=== PATIENT | male | born 2000 | race Caucasian/White ===

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

== ENCOUNTER 2019-06-15 16:51 | Emergency (ER) | payer BC, OTHER ==
[2019-06-15 16:57] VITALS: RESP 16; TEMP 98
[2019-06-15] MEDS ORDERED: diphenhydrAMINE 50 MG/ML 1 ML VIAL IVP STA (18:06)
[2019-06-15] MEDS ORDERED: METOCLOPRAMIDE 5 MG/ML 2 ML VIAL IVP STA (18:06)
[2019-06-15] MEDS ORDERED: SODIUM CHLORIDE 0.9% 1,000 ML IV STA (18:06)
--- NOTE | 2019-06-15 18:11 | CT ---
EXAMINATION TYPE: CT brain wo con DATE OF EXAM: 06/15/2019 COMPARISON: None HISTORY: Headache today. CT DLP: 1060.4 mGycm Automated exposure control for dose reduction was used. Exam performed with no contrast. Ventricles and sulci appear normal. There is no mass effect nor midline shift. There is no sign of in tracranial hemorrhage. There is no evidence of cerebral edema. The calvarium is intact. Sella turcica appears normal. IMPRESSION: Negative head CT scan.
[2019-06-15] MEDS ORDERED: KETOROLAC 30 MG/ML 1 ML VIAL IVP STA (18:15)
--- NOTE | 2019-06-15 18:49 | ED ---
General Adult HPI - General Chief complaint: Headache Stated complaint: Headache Time Seen by Provider: 06/15/19 16:58 Source: patient, RN notes reviewed, old records reviewed Mode of arrival: ambulatory Limitations: no limitations - History of Present Illness Initial comments: 18-year-old male patient with past history significant for migraine headache di justino presents to ED for chief complaint of migraine headache. Patient reports that headache started a little less than 6 hours ago. Describes it on the right side of his head. Patient does report that it feels somewhat simailar to migraine headaches in the past. Patient does report that he has more of fullness in his right temporal lobe than normal. Reports that this feels somewhat abnormal. Denies acute onset. He denied loss of consciousness. Reports the vision is at baseline. Denies worst headache of life. Denies any other complaints. Systemic: Pt denies fatigue, fever/chills, rash. Pt denies weakness, night sweats, weight loss. Neuro: Pt denies visual disturbances, syncope or pre-syncope. HEENT: Pt denies ocular discharge or irritation, otalgia, rhinorrhea, pharyngitis or notable lymphadenopathy. Cardiopulmonary: Pt denies chest pain, SOB, heart palpitations, dyspnea on exertion. Abdominal/GI: Pt denies abdominal pain, n/v/d. : Pt denies dysuria, burning w/ urination, frequency/urgency. Denies new onset urinary or bowel incontinence. MSK: Pt denies myalgia, loss of strength or function in extremities. Neuro: Pt denies new onset weakness, paresthesias. - Related Data Home Medications Medication Instructions Recorded Confirmed Albuterol Inhaler [Ventolin Hfa 1 - 2 puff INHALATION RT-Q6H PRN 02/14/17 Inhaler] ALPRAZolam [Xanax] 0.5 mg PO TID PRN 03/09/17 03/09/17 Previous Rx's Medication Instructions Recorded Ibuprofen [Motrin] 600 mg PO Q6HR PRN #20 tab 11/11/15 Albuterol Nebulized [Ventolin 2.5 mg INHALATION Q4H #30 nebu 03/09/17 Nebulized] Butalb/APAP/Caff 50-325-40Mg 1 tab PO Q4H PRN #15 tablet 03/09/17 [Fioricet 50-325-40] Meclizine [Antivert] 12.5 mg PO Q6H #10 tablet 03/09/17 methylPREDNISolone Dose Pack 4 mg PO DIRECTED #21 package 03/09/17 [Medrol Dose Pack] Allergies Allergy/AdvReac Type Severity Reaction Status Date / Time omeprazole [From Prilosec] Allergy Itching Verified 06/15/19 16:58 omeprazole magnesium Allergy Itching Verified 06/15/19 16:58 [From Prilosec] Review of Systems ROS Statement: Those systems with pertinent positive or pertinent negative responses have been documented in the HPI. ROS Other: All systems not noted in ROS Statement are negative. Past Medical History Past Medical History: Asthma Additional Past Medical History / Comment(s): seasonal allergies, pt buys vicodin and xanax off street History of Any Multi-Drug Resistant Organisms: None Reported Past Surgical History: Hernia Repair Additional Past Surgical History / Comment(s): complications -abd pain that radiates down his leg from hernia surgery Past Anesthesia/Blood Transfusion Reactions: No Reported Reaction Additional Past Anesthesia/Blood Transfusion Reaction / Comment(s): NO BLOOD TRANSFUSIONS Past Psychological History: ADD/ADHD, Anxiety Smoking Status: Current some day smoker Past Alcohol Use History: Occasional Past Drug Use History: Marijuana, Prescription Drug Abuse - Past Family History Father Family Medical History: No Reported History Additional Family Medical History / Comment(s): FATHER W/HTN... MOTHER NOTHING General Exam - General Exam Comments Initial Comments: Constitutional: NAD, AOX3, Pt has pleasant affect. HEENT: NC/AT, trachea midline, neck supple, no lymphadenopathy. Posterior pharynx non erythematous, without exudates. External ears appear normal, without discharge. Mucous membranes moist. Eyes PERRLA, EOM intact. There is no scleral icterus. No pallor noted. Cardiopulmonary: RRR, no murmurs, rubs or gallops, no JVD noted. Lungs CTAB in anterior and posterior palmer. No peripheral edema. Abdominal exam: Abdomen soft and non-distended. Abdomen non-tender to palpation in all 4 quadrants. Bowel sounds active in LLQ. No hepatosplenomegaly. No ecchymosis Neuro: CN II-XII intact. No nuchal rigidity. No raccon eyes, no jimenez sign, no hemotympanum. No cervical spinal tenderness. NIH 0. MSK: No posterior calf tenderness bilaterally, homans sign negative bilaterally. Posterior tibialis and radial pulse +2 bilaterally. Sensation intact in upper and lower extremities. Full active ROM in upper and lower extremities, 5/5 stregnth. Limitations: no limitations Course Vital Signs 06/15/19 16:54 Temperature 98.0 F Pulse Rate 55 L Respiratory 16 Rate Blood Pressure 118/68 O2 Sat by Pulse 99 Oximetry Medical Decision Making - Medical Decision Making 18-year-old male patient with past history significant for migraine headache disorder presents to ED for chief complaint of migraine headache. Patient reports that headache started a little less than 6 hours ago. Describes it on the right side of his head. Patient does report that it feels somewhat simailar to migraine headaches in the past. Patient does report that he has more of fullness in his right temporal lobe than normal. Reports that this feels somewhat abnormal. Denies acute onset. He denied loss of consciousness. Reports the vision is at baseline. Denies worst headache of life. Denies any other complaints. Pt VSS, afebrile. Physical exam displayed: CN II-XII intact. No nuchal rigidity. No raccon eyes, no jimenez sign, no hemotympanum. No cervical spinal tenderness. NIH 0. However patient CT of brain. Patient does wish to have this obtained. Discussed risks of radiation. Patient verbalized understanding. CT brain negative. Patient headache resolved with migraine headache. Patient will be discharged to follow up with primary care provider return to ER physician worsens. Case discussed with Dr. Richardson. Disposition Clinical Impression: Migraine headache Disposition: HOME SELF-CARE Condition: Stable Instructions (If sedation given, give patient instructions): Acute Headache (ED) Additional Instructions: Follow-up with primary care provider tomorrow. Return to ER if condition worsens. Is patient prescribed a controlled substance at d/c from ED?: No Referrals: None,Stated [Primary Care Provider] - 1-2 days [facility] [NON-STAFF] - 1-2 days
[2019-06-15 19:10] VITALS: BP 128/71; PULSE 72
== END 2019-06-15 19:11 | disposition home or self-care (01) ==
LOC: EC 16:51
DX: G43.909 Migraine, unspecified, not intractable, without status migrainosus (principal); J45.909 Unspecified asthma, uncomplicated; F41.9 Anxiety disorder, unspecified; F17.200 Nicotine dependence, unspecified, uncomplicated; Z79.51 Long term (current) use of inhaled steroids; Z79.899 Other long term (current) drug therapy; Z88.8 Allergy status to other drugs, medicaments and biological substances
CPT/HCPCS: 70450; 99284; 96374; 96375; 96361; J2765; J1885